=== PATIENT | male | born 1975 | race Caucasian/White ===

== ENCOUNTER 2016-05-24 19:35 | Emergency (ER) | END 2016-05-25 00:57 | disposition home or self-care (01) | DX: R10.13 Epigastric pain (principal); L29.9 Pruritus, unspecified; F17.210 Nicotine dependence, cigarettes, uncomplicated | CPT/HCPCS: 76705; 80053; 81003; 83690; 84484; 85025; 93005; Z7502 ==

== ENCOUNTER 2016-05-28 12:17 | Emergency (ER) | payer OTHER ==
[~2016-05-28] VITALS: Ht 180.3 cm; Wt 108.0 kg
[~2016-05-28 12:17] MED LIST: BEN25 PO; IBUP-1542 PO; MAG-19 PO; OMEP20CA16 PO; ONDA4TAB14 PO; ORPH100T PO
[2016-05-28 12:19] VITALS: Ht 180.3 cm; Wt 108.0 kg
--- NOTE | 2016-05-28 14:27 | ERD ---
ER Documentation Chief Complaint Date/Time DATE: 05/28/16 TIME: 14:23 Chief Complaint pt bib self with c/o abd pain x 2 months HPI Patient is a 41-year-old male who presents with generalized abdominal pain and he has had for 2 months. He was seen here 5 days ago and had a completely unremarkable examination including abdominal ultrasound and labs which were all normal. Patient also states that he believes that people are allergic to him as people who come near him are always coughing and itching. She denies fever. Denies nausea or vomiting. States the pain moves all over different parts of his stomach. Denies any dysuria hematuria or frequency. ROS All systems reviewed and are negative except as per history of present illness. Medications Home Meds Active Scripts Lorazepam* (Lorazepam*) 1 Mg Tablet, 1 MG PO Q8, #10 TAB Prov:TRISTEN HUANG PA-C 05/28/16 Diphenhydramine Hcl* (Benadryl*) 25 Mg Cap, 25 MG PO Q6 Y for ITCHING/RASH, #30 TAB Prov:CLIF SIMON NP 05/25/16 Omeprazole* (Omeprazole*) 20 Mg Capsule.dr, 20 MG PO DAILY, #30 Prov:CLIF SIMON NP 05/25/16 Ondansetron (Ondansetron Odt) 4 Mg Tab.rapdis, 4 MG PO Q8 Y for NAUSEA AND/OR VOMITING, #10 TAB Prov:CLIF SIMON NP 05/25/16 Magaldrate/Simethicone* (Mylanta*) 355 Ml Susp, 30 ML PO QID Y for GASTROINTESTINAL UPSET, #1 BOTTLE Prov:CLIF SIMON NP 05/25/16 Orphenadrine Citrate (Norflex) 100 Mg Tablet.sa, 100 MG PO BID for 5 Days, TAB.SA Prov:RADHA RILEY 04/01/16 Ibuprofen* (Motrin*) 600 Mg Tab, 600 MG PO Q6, #30 TAB Prov:RADHA RILEY 04/01/16 Allergies Allergies: Coded Allergies: No Known Drug Allergies (Verified Allergy, Unknown, 04/08/14) PMhx/Soc Medical and Surgical Hx: pt denies Surgical Hx History of Surgery: No Anesthesia Reaction: No Hx Neurological Disorder: No Hx Respiratory Disorders: No Hx Cardiac Disorders: No Hx Psychiatric Problems: No Hx Miscellaneous Medical Probl: Yes (ECZEMA, PSORIASIS) Hx Alcohol Use: No Hx Substance Use: No Hx Tobacco Use: No Smoking Status: Never smoker FmHx Family History: No diabetes Physical Exam Vitals Vital Signs Date Time Temp Pulse Resp B/P Pulse Ox O2 Delivery O2 Flow Rate FiO2 05/28/16 12:19 98.3 67 18 144/91 99 Physical Exam General: well developed, well nourished, alert, nontoxic, no distress, anxious Head: normocephalic, atraumatic Neck: Supple, nontender, no lymphadenopathy, no midline tenderness Oropharynx: no tonsilar erythema or edema, uvula midline, no exudates, no kissing tonsils, no drooling Respiratory: Clear to auscaultation bilaterally, speaks in full sentences, no use of accesory muscles or labored breathing, no rales, ronchi, or wheezing Cardiovascular: RRR, No murmurs GI: soft, non tender, non distended, negative murphys sign, negative mcburneys point tenderness, no cva tenderness bilaterally, no rebound or guarding Back: no midline tenderness, no step offs or bony abnormalities, sensation to light touch in tact Procedures/MDM 41-year-old male presents with abdominal pain that is chronic. He was seen here on May 24 and had a completely normal exam including labs and ultrasound. Patient has a completely normal exam he has no tenderness throughout his entire abdomen. His vital signs are all within normal limits. I suspect there is an anxiety component to this as the patient does seem anxious. He has no chest pain or shortness of breath. He prefers not to repeat labs and given that he had labs done within the week I think this is appropriate also as I have a low suspicion for any acute abnormality however he did want to have a higher level of imaging data and therefore I did perform a CT of the abdomen and pelvis without contrast. CT scan showed hepatic steatosis otherwise no acute intra-abdominal process, no nephrolithiasis, normal appendix, no bowel obstruction. Patient was given copy of results we can follow with primary care. At discharge patient stated he would like to try sitting for anxiety as I told him I think this is most likely anxiety related and therefore I gave him a small amount of Ativan to try. He was given a total of 10 pills. No further refills should come from emergency room he should get refills from primary care and discussed other treatment options with primary care. Recommended this patient follow up with her primary care doctor within 48 hours or return to the emergency room for any worsening of symptoms. However this time I do believe there is suitable for outpatient management. I answered all their questions and they agreed with the plan and were discharged home. Departure Diagnosis: Primary Impression: Abdominal pain Additional Impression: Anxiety Condition: Stable TRISTEN HUANG PA-C May 28, 2016 14:26
--- NOTE | 2016-05-28 14:28 | RADRPT ---
PROCEDURE: CT KUB. CLINICAL INDICATION: Upper mid abdominal pain. TECHNIQUE: CT KUB (Renal Stone Survey) without contrast was performed on a [employer] volumetric [address] scanner. No IV contrast was administered. 3-D coronal reformatted images were obtained from the axial source images. COMPARISON: April 09, 2014 CTDI: 19.6 mGy DLP: 1337 mGy-cm FINDINGS: Visualized lung bases are clear. There is diffuse fatty infiltration of the liver. No focal liver lesions are seen although evaluati on is limited without intravenous contrast. The unenhanced spleen, bilateral adrenal glands, gallbladder, pancreas, and bilateral kidneys are no rmal-appearing. No nephrolithiasis. No hydronephrosis. The urinary bladder is grossly normal. Abdominal aorta is normal in caliber though it is evaluation is limited without intravenous contrast . No intra-abdominal free air, free fluid, mesenteric stranding, nor abdominal pelvic adenopathy. The small and large bowel are thin-walled and nondilated without evidence for obstruction. The appe ndix is normal. No suspicious osseous lesions. IMPRESSION: No acute intra-abdominal process. No nephrolithiasis. Normal appendix. No bowel obstruction. Hepatic steatosis. Physician Bud Date Time Electronically viewed and signed by Physician Bud on 05/28/2016 14:28 ML/
[2016-05-28] MEDS ORDERED: LORA1TAB PO (14:40)
== END 2016-05-28 15:00 | disposition home or self-care (01) ==
LOC: FTE 12:17
DX: R10.84 Generalized abdominal pain (principal); F41.9 Anxiety disorder, unspecified
CPT/HCPCS: 74176; Z7502

== ENCOUNTER 2017-07-12 08:29 | Day surgery (SDC) | END 2017-07-12 13:45 | disposition home or self-care (01) ==